=== PATIENT | male | born 1990 | race Caucasian/White ===

== ENCOUNTER 2020-12-30 01:53 | Emergency (ER) | payer OTHER, SELFPAY ==
[2020-12-30 02:04] VITALS: BP 133/68; PULSE 77; RESP 16; TEMP 36.6; O2SAT 98; BMI 25.1
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
== END 2020-12-30 03:46 | disposition left against medical advice (07) ==
PROVIDERS: Emergency Provider Emergency Medicine
DX: Z04.1 Encounter for examination and observation following transport accident (principal); M54.2 Cervicalgia
CPT/HCPCS: 99283

== ENCOUNTER 2021-01-03 21:08 | Emergency (ER) | payer OTHER, SELFPAY ==
[2021-01-03 21:20] VITALS: BP 116/70; PULSE 90; RESP 16; TEMP 36.1; O2SAT 98; BMI 22.8
--- NOTE | 2021-01-03 21:57 | ED.GENADULT ---
HPI - General Adult General Chief complaint: ETOH/Substance Use Stated complaint: drug use Time Seen by Provider: 01/03/21 21:27 Source: patient Mode of arrival: ambulatory History of Present Illness HPI narrative: 33-year-old male with a past medical history of anxiety, depression, substance abuse, presenting to the ED [facility] from [facility] after found getting sleepy at the register in [place]. Patient reports injecting 2 bags of heroin. Denies other illicit drugs or EtOH. Denies SI/HI. Denies trauma/falls or injury. No medications given by EMS/ENDOCRINOLOGY SPECIALIST. Denies CP/SOB, headache, nausea/vomiting Related Data Allergies Allergy/AdvReac Type Severity Reaction Status Date / Time No Known Allergies Allergy Verified 01/03/21 21:24 Review of Systems Review of Systems: Constitutional: No Fever, No Chills Cardiovascular: No Chest Pain, No SOB Respiratory: No Cough, No Dyspnea Gastrointestinal: No Nausea, No Vomiting, No Abdominal pain Genitourinary: No Dysuria, No Hematuria Musculoskeletal: No joint pain Skin: No Skin Lesions, No rash Neuro: No Weakness, No Numbness, No Loss of Consciousness,No Headache Psych: No Anxiety/Panic, No Depression, No SI/HI Yes all other systems are reviewed and are negative [facility] Past Medical History Attestation statement: The following information was validated with the patient. Medical History (Updated 01/04/21 @ 00:02 by Background Daemon) Anxiety Depression Substance abuse Physical Exam Vital Signs: Vital Signs: Last Vital Signs Temp 97.0 F 01/03/21 21:20 Pulse 90 01/03/21 21:20 Resp 16 01/03/21 21:20 BP 116/70 01/03/21 21:20 Pulse Ox 98 01/03/21 21:20 Body Mass Index 22.8 Const: Other: Appears under the influence, lethargic, alert to voice General: cooperative and alert Orientation/consciousness: patient oriented x3 Limitations: no limitations HENMT: Head: Yes normal to inspection, No Dc's sign and No raccoon eyes Ears: hearing grossly normal bilaterally General nose exam: Normal external nose present Face and sinus: Yes normal facial exam Mouth: Normal oral and palatal mucosa present Eyes: General: appearance normal, both eyes and all related structures EOM: EOMs intact bilaterally Neck: Neck: Yes normal visual inspection Resp: Effort & Inspection: normal respiratory effort and no respiratory distress Cardio: Rate: regular rate GI: Inspection: Yes normal to inspection Palpation (GI): Soft to palpation, nontender, no guarding and not rigid Skin: Rashes: no rashes Wounds: no wounds Neuro: General: patient oriented x3, tone normal and moves all extremities Extrem: General: Yes normal to inspection Psych: Thought content: suicidality and no homicidality Course Course Course Narrative: -6--patient is sleeping comfortably, easily arousable -57--patient is awake and alert, using phone looking for a ride home -99-- ED care transferred to Dr. Saavedra pending safe d/c home Medical Decision Making MDM Narrative Medical decision making narrative: 33-year-old male with a past medical history of anxiety, depression, substance abuse, presenting to the ED [facility] from [facility] after found getting sleepy at the register in [employer]. Patient reports injecting 2 bags of heroin. On exam vital signs stable, appears under the influence, lethargic however alert to voice. No signs of trauma. MURGUIA. Likely substance abuse/OD Plan: GRIFFIN, Observe and reassess for clinical sobriety Discharge Plan Discharge Clinical Impression: Substance abuse Instructions: Polysubstance Abuse (ED) Additional Instructions: Do not take drugs or drink alcohol it can kill you If you have any thoughts of hurting herself or hurting others please return to the ED immediately Please follow-up with your primary care doctor Referrals: [facility] [Physician] - 2 days
[2021-01-03 22:00] VITALS: BP 116/65; PULSE 84; RESP 14; O2SAT 97
[2021-01-04] VITALS: RESP 14
--- NOTE | 2021-01-04 01:59 | PC.NURSE ---
PATIENT WALKING STEADILY TO THE BATHROOM WITH SECURITY. PATIENT SEEN IN THE CRACK OF THE DOOR WAY DRAWING UP WHAT PATIENT REPORTS COCAINE. SECURITY STOPPING PATIENT AND TAKING HIM BACK TO IS ASSIGNED AREA, PATIENT SEARCHED AND ALL ADDITIONAL BELONGINGS TAKEN BY SECURITY TO [facility]. PATIENT INFORMED HE WILL BE STAYING IN THE DEPARTMENT HE WAS UNABLE TO FIND A SOBER SIDE HOME. HE IS ALERT AND OREINTED, EATING A SANDWICH WITH NO DISTRESS, LOOKING AT STAFF WHY WHAT DID I DO WRONG INFORMED THAT PATIENT CAN NOT BE INJECTING DRUGS IN A HOSPITAL BATHROOM.
[2021-01-04 02:00] VITALS: RESP 14
== END 2021-01-04 07:10 | disposition home or self-care (01) ==
PROVIDERS: Emergency Provider Student in an Organized Health Care Education/Training Program
DX: F11.19 Opioid abuse with unspecified opioid-induced disorder (principal); Z71.51 Drug abuse counseling and surveillance of drug abuser
CPT/HCPCS: 99284

== ENCOUNTER 2021-12-09 13:39 | Emergency (ER) | payer OTHER, SELFPAY ==
[2021-12-09 13:50] VITALS: BP 100/50; BP 117/75; PULSE 75; PULSE 92; RESP 16; TEMP 36.9; O2SAT 94; O2SAT 95; BMI 25.8
--- NOTE | 2021-12-09 13:57 | PC.NURSE ---
security called to do pyridine recovery operator
--- NOTE | 2021-12-09 14:07 | ED.GENADULT ---
HPI - General Adult General Chief complaint: Overdose Stated complaint: SUBSTANCE ABUSE Time Seen by Provider: 12/09/21 15:28 Source: patient Mode of arrival: ambulatory Limitations: no limitations History of Present Illness HPI narrative: 34 yold male presents to the ED for heroin use. patient used 4 bags of heroin and was [place] sleeping [place]. patient s not in any detox programs. patient presently is asymptomatic. Related Data Allergies Allergy/AdvReac Type Severity Reaction Status Date / Time No Known Allergies Allergy Verified 01/03/21 21:24 Review of Systems Review of Systems: substance abuse. patient is A0x3 Yes all other systems are reviewed and are negative [facility] Past Medical History Medical History (Updated 12/09/21 @ 15:34 by EM Holbrook) Anxiety Depression Substance abuse Social History Social History Alcohol intake: never Patient Tobacco Use Status: Current someday Tobacco user Use of substances other than those prescribed or required for medical reasons: Yes Substance Use Type: Heroin Advance Directives: No Advance Directives Information Provided: No Physical Exam ED Vital Signs: Vital Signs - 24 hr 12/09/21 13:50 12/09/21 15:36 Temperature 98.5 F 98.2 F Pulse Rate 75 79 Respiratory Rate 16 16 Blood Pressure 100/50 L 94/56 L Pulse Oximetry 95 94 Oxygen Delivery Method Room Air Room Air BMI result Body Mass Index 25.8 Const General: cooperative, healthy appearing, comfortable, no acute distress, well developed, alert, awake and Physically active Orientation/consciousness: patient oriented x3 HENMT Head: Yes normal to inspection, Yes No palpable skull fracture present, Yes normocephalic, Yes atraumatic and No abrasion Ears: hearing grossly normal bilaterally, external ears normal, TM's normal bilaterally, TM normal on the right, TM normal on the left, EAC's normal, mastoids normal and no periauricular adenopathy Eyes General: appearance normal, both eyes and all related structures Neck Neck: Yes normal visual inspection, Yes full ROM, Yes no lymphadenopathy, Yes no meningeal signs, Yes trachea midline, Yes supple, No anterior neck swelling and No tender Chest Chest palpation & inspection: normal inspection of the chest and normal palpation of entire chest wall Resp Effort & Inspection: normal respiratory effort and able to speak in complete sentences Auscultation: clear to auscultation bilaterally Cardio Jugular venous distension: no JVD Heart sounds: S1 normal heart sound present and S2 normal heart sound present GI Inspection: Yes normal to inspection and No abdominal wall ecchymosis Palpation (GI): Soft to palpation, not firm, nontender, no guarding and not rigid General: No CVA tenderness and Yes no CVA tenderness Back/Spine/Pelvis Back: no CVA tenderness, No CVA tenderness and No back tenderness Skin General skin exam: no rashes or lesions noted and elasticity normal Neuro Other: negative facial droop. Negative slurred speech. All extremities equal strength 5+ finger to nose rapid hand movement intact. Negative Romberg. Negative pronator drift. NIH 0 General: patient oriented x3, gait normal, no meningeal signs and CN's II-XI intact bilaterally Cranial nerves: Yes CN's II-XII intact bilaterally Extrem General: Yes normal to inspection and Yes full ROM Psych Appearance: grossly normal and well kempt Course Course Course Narrative: patient placed on pulse ox. Also monitor room air 96%. Care team consult placed. Reevaluation(s) Reevaluation #1: Juan of care team and recovery came to evaluate patient. Plan is pending Time: 14:23 Reevaluation #2: As per Juan patient does not want any detox or outpatient resources. Patient himself states a follow-up with his primary care provider so he could placed on Suboxone. Juan still give patient information on outpatient detox program. Patient is alert oriented x3. Whole-body evaluated no signs of trauma. patient alert oriented x3 on discharge. Patient discharged with naloxone. Time: 15:32 Medical Decision Making MDM Narrative Medical decision making narrative: opoid abuse Discharge Plan Discharge Clinical Impression: Opioid abuse Patient Disposition: Home, Self-Care Instructions: Opioid Use Disorder (ED) Additional Instructions: Please follow-up with your primary care provider to be placed on Suboxone. Also contact outpatient detox program he was given by our care team consulted. Return to the ED for any suicidal ideation, homicidal ideation, auditory / visual hallucinations, any physical complaints, or any other concerning symptoms. Interventions: ED Discharge Assessment Last Done: 12/09/21 15:37 Discharge Date/Time: 12/09/21 15:38 Print Language: Algerian
--- NOTE | 2021-12-09 14:28 | HO.SUDE ---
SUDE Patient is a 34 year old Croatian speaking male who presented to [facility] ED after appearing drowsy at the [email or web address]. Patient did not receive narcan. Patient appeared to be nodding off during consultation however was engaged and willing to discuss his substance use. Patient reports he is just tired as he only got one hour of sleep due to staying up for a friends democrat. Patient reports no alcohol or cocaine use however does report using heroin. Patient reports he was previously using everyday however recently he has been using once a week or even once every three weeks. Patient is not interested in detox at this time however he has been in the past and did not find it helpful. Patient reports he has overdosed twice in the past. Patient has been on Suboxone/ Sublocade and found it helpful. Patient reports his PCP is able to provide this for him and he plans to get back on it. Patient reports no questions or concerns at this time. Patient accepted contact information for this global technical writer in the event that he cannot get in with his PCP in a reasonable amount of time. Discussed case with patient's ED provider.
--- NOTE | 2021-12-09 14:58 | PC.NURSE ---
eliot/care team has been to bedside to speak with patient
--- NOTE | 2021-12-09 14:59 | PC.NURSE ---
patient a&o, continuous pulse ox on per order- o2 sat remains at 94-96%, pt denies si/hi, no c/o pain or discomfort, call esquivel within reach, will continue to monitor.
[2021-12-09] MEDS: Naloxone HCl Nasal TAKE HOME 4 MG SPRAY NOSTRILALT (15:35)
--- NOTE | 2021-12-09 15:35 | PC.NURSE ---
pt was given take home narcan, it would not scan in computer
[2021-12-09 15:36] VITALS: BP 94/56; PULSE 79; RESP 16; TEMP 36.8; O2SAT 94
== END 2021-12-09 15:38 | disposition home or self-care (01) ==
PROVIDERS: Emergency Provider Emergency Medicine Emergency Medical Services
DX: T40.1X1A Poisoning by heroin, accidental (unintentional), initial encounter (principal); F11.19 Opioid abuse with unspecified opioid-induced disorder; Y92.9 Unspecified place or not applicable; Z71.51 Drug abuse counseling and surveillance of drug abuser
CPT/HCPCS: 99284